=== PATIENT | female | born 1990 | race African-American/Black ===

== ENCOUNTER 2019-02-15 13:55 | Emergency (ER) | payer SELFPAY ==
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
[2019-02-15 15:15] LABS: BASOPHILS % 0.3 % (0.0-1.5); NEUTROPHILS # 4.2 # k/uL (1.4-7.7)
[2019-02-15 15:39] LABS: eGFR (Non-African) > 60
[2019-02-15] MEDS ORDERED: 0.9 % SODIUM CHLORIDE 1,000 ML IV ONE (15:53)
[2019-02-15 16:53] VITALS: BP 113/71
[2019-02-15 16:54] LABS: APPEARANCE,URINE CLEAR (CLEAR); COLOR,URINE YELLOW (YELLOW)
[2019-02-15 16:55] LABS: OCCULT BLOOD,URINE TRACE-INTACT (NEGATIVE)
[2019-02-15 16:55] LABS: CANNABINOIDS NEGATIVE ng/mL (< 50); METHYLENEDIOXYMETHAMPHETAMINE NEGATIVE ng/mL (<500)
== END 2019-02-15 16:28 | disposition home or self-care (01) ==
LOC: ED 13:55
DX: F19.10 Other psychoactive substance abuse, uncomplicated (principal)
CPT/HCPCS: 36415; 80053; 80377; 81002; 84484; 85025; 99283; G0481; S1016

== ENCOUNTER 2019-03-28 23:34 | Emergency (ER) | payer SELFPAY ==
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
[2019-03-28 23:48] VITALS: BP 119/72
--- NOTE | 2019-03-29 06:21 | Diagnostic Imaging Report ---
GEOVANNY METZ ED [facility] [address] [facility] [address]. [id number] Report Submission Date: Mar 29, 2019 12:07:23 AM CDT Patient Study Name: YARIEL SINGH Date: Mar 28, 2019 11:39:16 PM CDT Modality Type: DX Gender: F Description: SHOULDER 2 VIEWS OR MORE : 86 Institution: [facility] Physician: GEOVANNY METZ ED Three views of right shoulder Clinical history: Fall with injury. Pain. Findings: Examination right shoulder multiple views fails to demonstrate evidence of fracture, dislocation or other bone or joint pathology. Electronically signed on Mar 29, 2019 12:07:23 AM CDT by: Chapincito MELCHOR
== END 2019-03-29 00:08 | disposition home or self-care (01) ==
LOC: ED 23:34
DX: S40.011A Contusion of right shoulder, initial encounter (principal); S09.93XA Unspecified injury of face, initial encounter; Y04.2XXA Assault by strike against or bumped into by another person, initial encounter
CPT/HCPCS: 73030; 99282; 99283